=== PATIENT | female | born 1990 | race Caucasian/White ===

== ENCOUNTER 2021-12-07 12:32 | Emergency (ER) | payer BC ==
[2021-12-07 12:49] VITALS: BP 127/85; PULSE 98
== END 2021-12-07 13:29 | disposition home or self-care (01) ==
LOC: JD.ED 12:32
DX: S61.211A Laceration without foreign body of left index finger without damage to nail, initial encounter (principal); W26.8XXA Contact with other sharp object(s), not elsewhere classified, initial encounter
CPT/HCPCS: 99282